=== PATIENT | male | born 1935 | race Caucasian/White ===

== ENCOUNTER 2021-10-16 16:53 | Emergency (ER) | payer OTHER, SELFPAY ==
--- NOTE | ~2021-10-16 | CT_ITS ---
EXAMINATION: CT HEAD WITHOUT CONTRAST CLINICAL INFORMATION: Dizziness. COMPARISON: None. TECHNIQUE: Contiguous axial imaging was performed from the skull base to vertex without intravenous administration of contrast. Coronal and sagittal reformatted images are performed at the CT scanner. [This CT examination was performed using dose optimization techniques as appropriate, variously including the following: *Automated exposure control *Adjustment of mA and/or kV according to patient size (this includes techniques or standardized protocols for targeted exams where dose is matched to indication/reason for exam; i.e. extremities or head) *Use of iterative reconstruction technique] DLP: 685 mGy-cm. FINDINGS: There is no evidence of acute intracranial hemorrhage or territorial infarction. No abnormal mass-effect or midline shift is seen. Zaidi to white matter differentiation is well preserved. No extra-axial fluid collections are identified. There is generalized global volume loss. There is mild prominence of the ventricles and the sulci . There is mild hypodensity of the periventricular white matter due to chronic small vessel ischemic disease. There are vascular calcifications of the internal carotid arteries bilaterally. There is no osseous abnormality. Mucosal thickening in the bilateral ethmoid sinuses, bilateral inferior maxillary and left sphenoid sinus. Mastoid air cells and middle ear cavities are normally aerated CT/CT head/brain wo con IMPRESSION: No acute intracranial pathology.
[2021-10-16 17:09] VITALS: BP 128/57; PULSE 60; O2SAT 98
[2021-10-16 17:18] VITALS: BP 135/71; PULSE 57; RESP 16; O2SAT 98
--- NOTE | 2021-10-16 17:18 | ED.DIZZY ---
HPI - Dizziness General Chief Complaint: Dizziness Stated Complaint: DIZZINESS Time Seen by Provider: 10/16/21 17:18 Source: patient Mode of arrival: ambulatory Limitations: no limitations History of Present Illness HPI Narrative: Patient 86 years old with history of hypertension otherwise very active played golf yesterday today was resting at home thought of doing pushups which he does all the time movement he started doing it he noticed everything spinning no headache no nausea no vomiting patient denies any chest pain or palpitation usually heart rate is around 55 when EMS reached patient heart rate was in 40s was given 0.5 mg of atropine x2 on arrival patient's heart rate is 60 feeling much better Related Data Home Medications Medication Instructions Recorded Confirmed atenolol 25 mg tablet 1 tab PO DAILY 10/16/21 10/16/21 atorvastatin 10 mg tablet 1 tab PO DAILY 10/16/21 10/16/21 losartan 50 mg tablet 1.5 tab PO DAILY 10/16/21 10/16/21 Previous Rx's Medication Instructions Recorded meclizine 25 mg tablet 25 mg PO TID PRN #20 tab 10/16/21 Allergies Allergy/AdvReac Type Severity Reaction Status Date / Time No Known Allergies Allergy Verified 10/16/21 17:19 Review of Systems Review of Systems: Yes all other systems are reviewed and are negative FORMERLY [facility], [facility] Past Medical History Medical History HLD (hyperlipidemia) HTN (hypertension) Social History Social History Advance Directives: Yes Advance Directives on File: Yes Advance Directives Date on File: 10/16/21 Physical Exam Vital Signs: Vital Signs: Last Vital Signs Temp 97.8 F 10/16/21 20:31 Pulse 51 10/16/21 20:31 Resp 16 10/16/21 20:31 BP 141/57 H 10/16/21 20:31 Pulse Ox 96 10/16/21 20:31 BMI result Body Mass Index 19.9 Appearance: Alert. Oriented X3. No acute distress. Eyes: PERRLA, No Nystagmus increased dizziness on turning of the head to the right side ENT: Pharynx normal. Oral Mucosa moist Neck: Normal inspection. Neck supple. CVS: Normal heart rate and rhythm. Pulses normal. Respiratory: No respiratory distress. Equal air entry bilateral, no wheezing/rales/rhonchi Abdomen: Soft and nontender. Bowel sounds are present, no mass palpable, no CVA tenderness Skin: Skin warm and dry. Normal skin color. Normal skin turgor. Extremities: No lower extremity edema. No calf tenderness Neuro: Oriented X 3. No motor deficit. No sensory deficit.No cerebellar signs , cranial nerves II-XII intact MDM - Dizziness MDM Narrative Medical decision making narrative: Patient with sudden onset of dizziness was displaying movement workup is benign except for chronic renal insufficiency patient feel better and able to ambulate will discharge patient home on meclizine no cerebellar signs of posterior circulation stroke Lab Data Attestation: I reviewed the patient's lab results. Result diagrams: 10/16/21 19:24 10/16/21 18:29 Labs: Lab Results 10/16/21 10/16/21 10/16/21 Range/Units 18:29 18:29 18:29 WBC Cancelled RBC Cancelled Hgb Cancelled Hct Cancelled MCV Cancelled MCH Cancelled MCHC Cancelled RDW Cancelled Plt Count Cancelled MPV Cancelled Immature Gran % (Auto) Cancelled Neut % (Auto) Cancelled Lymph % (Auto) Cancelled Greenlee % (Auto) Cancelled Eos % (Auto) Cancelled Baso % (Auto) Cancelled Lymph # (Auto) Cancelled Greenlee # (Auto) Cancelled Eos # (Auto) Cancelled Baso # (Auto) Cancelled Abs Immat Gran (auto) Cancelled Absolute Neuts (auto) Cancelled Absolute Nucleated RBC Cancelled Nucleated RBC % (auto) Cancelled Sodium 139 (135-145) mmol/L Potassium 4.9 (3.3-5.1) mmol/L Chloride 108 (96-108) mmol/L Carbon Dioxide 23 (22-29) mmol/L Anion Gap 13 (12-20) BUN 25 H (9-16) mg/dL Creatinine 1.50 H (0.5-1.4) mg/dL Estim Creat Clear Calc 38.5 Estimated GFR 45 Random Glucose 120 H (60-115) mg/dL Calcium 9.4 (8.4-10.2) mg/dL Magnesium 1.9 (1.6-2.6) mg/dL Total Bilirubin 0.8 (0.0-1.0) mg/dL AST 24 (5-37) U/L ALT 17 (0-40) U/L Alkaline Phosphatase 54 (39-117) U/L Troponin I High Sens 4.3 (<3.5-35.0) ng/L Total Protein 7.3 (6.5-8.0) g/dL Albumin 3.9 (3.5-5.0) g/dL 10/16/21 Range/Units 19:24 WBC 11.4 H RBC 3.84 L Hgb 12.4 L Hct 35.1 L MCV 91.4 MCH 32.3 MCHC 35.3 RDW 12.1 Plt Count 190 MPV 10.0 Immature Gran % (Auto) 0.4 Neut % (Auto) 74.4 H Lymph % (Auto) 14.5 L Greenlee % (Auto) 7.7 Eos % (Auto) 2.7 Baso % (Auto) 0.3 Lymph # (Auto) 1.7 Greenlee # (Auto) 0.9 Eos # (Auto) 0.3 Baso # (Auto) 0.0 Abs Immat Gran (auto) 0.05 H Absolute Neuts (auto) 8.5 H Absolute Nucleated RBC 0.000 Nucleated RBC % (auto) 0.0 Sodium (135-145) mmol/L Potassium (3.3-5.1) mmol/L Chloride (96-108) mmol/L Carbon Dioxide (22-29) mmol/L Anion Gap (12-20) BUN (9-16) mg/dL Creatinine (0.5-1.4) mg/dL Estim Creat Clear Calc Estimated GFR Random Glucose (60-115) mg/dL Calcium (8.4-10.2) mg/dL Magnesium (1.6-2.6) mg/dL Total Bilirubin (0.0-1.0) mg/dL AST (5-37) U/L ALT (0-40) U/L Alkaline Phosphatase (39-117) U/L Troponin I High Sens (<3.5-35.0) ng/L Total Protein (6.5-8.0) g/dL Albumin (3.5-5.0) g/dL Discharge Plan Discharge Clinical Impression: Benign paroxysmal positional vertigo Patient Disposition: Home, Self-Care Instructions: Benign Paroxysmal Positional Vertigo (ED) Additional Instructions: Cautions as advised Take meclizine 1 tablet 3 times a day as needed for dizziness Report to the ER/PCP if worsening of the symptoms Decrease the dose of atenolol to 25 mg daily and check HR if it is lower than 40 , call PCP or come to the ER Prescriptions: New meclizine 25 mg tablet 25 mg PO TID PRN (Reason: dizziness) Qty: 20 0RF No Action losartan 50 mg tablet 1.5 tab PO DAILY 0RF atorvastatin 10 mg tablet 1 tab PO DAILY 0RF atenolol 25 mg tablet 1 tab PO DAILY 0RF
--- NOTE | 2021-10-16 17:19 | ECG_ITS ---
Test Reason : DIZZINESS Blood Pressure : / mmHG Vent. Rate : 058 BPM Atrial Rate : 058 BPM P-R Int : 238 ms QRS Dur : 102 ms QT Int : 448 ms P-R-T Axes : 034 -43 060 degrees QTc Int : 439 ms Sinus bradycardia with 1st degree A-V block Left axis deviation Minimal voltage criteria for LVH, may be normal variant ( R in aVL ) Abnormal ECG No previous ECGs available Referred By: De Weinstein Electronically Signed By:MARY PRUETT MD
[2021-10-16 17:23] VITALS: BP 135/71; PULSE 57; O2SAT 96; BMI 19.9
[2021-10-16 17:35] VITALS: BP 140/67; O2SAT 98
[2021-10-16 18:51] LABS: Alanine Aminotransferase 17 U/L (0-40); Albumin Level 3.9 g/dL (3.5-5.0); Alkaline Phosphatase 54 U/L (39-117); Anion Gap 13 (12-20); Aspartate Amino Transferase 24 U/L (5-37); Bilirubin Total 0.8 mg/dL (0.0-1.0); Blood Urea Nitrogen 25 mg/dL (9-16); Calcium 9.4 mg/dL (8.4-10.2); Carbon Dioxide 23 mmol/L (22-29); Chloride 108 mmol/L (96-108); Creatinine Clr Calc Pharmacy 38.5; Estimated Glomerular Filt Rate 45; Glucose Random 120 mg/dL (60-115); Magnesium 1.9 mg/dL (1.6-2.6); Potassium 4.9 mmol/L (3.3-5.1); Sodium 139 mmol/L (135-145); Total Protein 7.3 g/dL (6.5-8.0)
[2021-10-16 18:56] LABS: Troponin-I High Sensitivity 4.3 ng/L (<3.5-35.0)
[2021-10-16] MEDS: 0.9 % Sodium Chloride 1,000 ML 999 ML IV (19:20)
[2021-10-16 19:30] LABS: MANUAL DIFF FLAG NO
[2021-10-16 19:31] LABS: Basophils Percent Auto 0.3 % (0-2); Eosinophils Absolute Auto 0.3 X10*3/uL (0.0-0.4); Eosinophils Percent Auto 2.7 % (0-4); Hematocrit 35.1 % (42.0-52.0); Hemoglobin 12.4 g/dl (14.0-18.0); Imm Gran Abs Auto 0.05 X10*3/uL (0.00-0.03); Imm Gran Pct Auto 0.4 % (0.0-0.4); Lymphocytes Absolute Auto 1.7 X10*3/uL (1.2-4.9); Lymphocytes Percent Auto 14.5 % (20-40); Mean Corpuscular HGB Conc 35.3 g/dl (31.0-36.0); Mean Corpuscular Hemoglobin 32.3 pg (27.0-33.0); Mean Corpuscular Volume 91.4 fL (80.0-98.0); Monocytes Absolute Auto 0.9 X10*3/uL (0.1-1.2); Monocytes Percent Auto 7.7 % (2-11); Neutrophils Absolute Auto 8.5 x10*3/uL (2.0-8.3); Neutrophils Percent Auto 74.4 % (45-73); Platelet Count 190 X10*3/uL (160-400); Red Blood Count 3.84 X10*6/uL (4.60-5.80); Red Cell Distribution Width 12.1 % (11.0-16.0); White Blood Count 11.4 X10*3/uL (4.8-10.8)
[2021-10-16] MEDS: Meclizine HCl 25 MG TABLET PO (20:27)
[2021-10-16 20:31] VITALS: BP 141/57; PULSE 51; RESP 16; TEMP 36.6; O2SAT 96
--- NOTE | 2021-10-16 21:04 | PC.NURSE ---
pt ambulated with assistance from ED tach. c/o mild dizziness with positional changes. no dizziness at rest. dtr at bedside
== END 2021-10-16 22:16 | disposition home or self-care (01) ==
PROVIDERS: Emergency Provider Internal Medicine; PCP Internal Medicine
DX: H81.13 Benign paroxysmal vertigo, bilateral (principal); I10 Essential (primary) hypertension; Z79.899 Other long term (current) drug therapy
CPT/HCPCS: 36415; 70450; 80053; 83735; 84484; 85025; 93005; 96360; 99284; 99285

== ENCOUNTER 2021-10-24 08:24 | Emergency (ER) | payer MEDICARE, OTHER, SELFPAY ==
[2021-10-24 08:40] VITALS: BP 159/84; PULSE 75; RESP 18; TEMP 36.8; O2SAT 97; BMI 25.7
--- NOTE | 2021-10-24 08:44 | ED_ITS ---
HPI - General Adult General Chief complaint: Extremity Injury, Upper <GERMAN Mancuso - Last Filed: 10/24/21 09:21> Stated complaint: r arm pain <GERMAN Mancuso Last Filed: 10/24/21 09:21> Time Seen by Provider: 10/24/21 08:44 <GERMAN Mancuso Last Filed: 10/24/21 09:21> Source: patient <GERMAN Mancuso Last Filed: 10/24/21 09:21> Mode of arrival: ambulatory <GERMAN Mancuso Last Filed: 10/24/21 09:21> Limitations: no limitations <GERMAN Mancuso Last Filed: 10/24/21 09:21> History of Present Illness HPI narrative: Patient is an 86 year old male presenting to the emergency department today with right elbow pain. Patient states that a week ago he was in the emergency department when he had his right IV line infiltrate. Patient states that a few days ago, his right elbow started to swell and hurt. Patient denies any dizziness, lightheadedness, abdominal pain, nausea, vomiting, fever, chills, blurry vision, double vision, loss of vision, chest pain, difficulty breathing, shortness of breath, back pain, night sweats, pain with urination, increased urinary frequency, increased urinary urgency, blood in his urine or stool, syncope or a near syncopal episode, recent trauma or falls, bowel incontinence, bladder incontinence, bowel retention, bladder retention, or any other complaints at this time. <GERMAN Mancuso Last Filed: 10/24/21 09:21> Onset (ago): day(s) <GERMAN Mancuso - Last Filed: 10/24/21 09:21> Location: right and upper extremity <GERMAN Mancuso Last Filed: 10/24/21 09:21> Radiation: non-radiation <GERMAN Mancuso Last Filed: 10/24/21 09:21> Severity: mild <GERMAN Mancuso Last Filed: 10/24/21 09:21> Severity scale (1-10): 4 <GERMAN Mancuso Last Filed: 10/24/21 09:21> Quality: dull <GERMAN Mancuso - Last Filed: 10/24/21 09:21> Pain Consistency: constant <GERMAN Mancuso - Last Filed: 10/24/21 09:21> Relieving factors: none <GERMAN Mancuso Last Filed: 10/24/21 09:21> Exacerbating factors: none <GERMAN Mancuso Last Filed: 10/24/21 09:21> Associated symptoms: denies other symptoms <GERMAN Mancuso - Last Filed: 10/24/21 09:21> Treatments prior to arrival: none <GERMAN Mancuso Last Filed: 10/24/21 09:21> Related Data Home medications: Home Medications Medication Instructions Recorded Confirmed atenolol 25 mg tablet 1 tab PO DAILY 10/16/21 10/16/21 atorvastatin 10 mg tablet 1 tab PO DAILY 10/16/21 10/16/21 losartan 50 mg tablet 1.5 tab PO DAILY 10/16/21 10/16/21 Previous Rx's Medication Instructions Recorded meclizine 25 mg tablet 25 mg PO TID PRN #20 tab 10/16/21 <GERMAN Mancuso - Last Filed: 10/24/21 09:21> Allergies/adverse reactions: Allergies Allergy/AdvReac Type Severity Reaction Status Date / Time No Known Allergies Allergy Verified 10/16/21 17:19 <GERMAN Mancuso - Last Filed: 10/24/21 09:21> Review of Systems Constitutional: Constitutional: Reports no additional constitutional complaints, Denies chills, Denies fever(s) and Denies night sweats <GERMAN Mancuso - Last Filed: 10/24/21 09:21> Eyes: Eyes: Reports no additional eye complaints, Denies blurry vision, Denies change in vision, Denies diplopia, Denies eye discharge, Denies loss of vision and Denies eye pain <GERMAN Mancuso - Last Filed: 10/24/21 09:21> ENT: Denies dizziness <GERMAN Mancuso Last Filed: 10/24/21 09:21> Cardiovascular: Cardiovascular: Reports no additional cardiovascular complaints, Denies chest pain, Denies lightheadedness, Denies Loss of Consciousness and Denies dyspnea <GERMAN Mancuso Last Filed: 10/24/21 09:21> Respiratory: Respiratory: Reports no additional respiratory complaints and Denies dyspnea <GERMAN Mancuso Last Filed: 10/24/21 09:21> Gastrointestinal: Gastrointestinal: Reports no additional gastrointestinal complaints, Denies abdominal pain, Denies melena, Denies hematochezia, Denies c hange in bowel habits and Denies change in stool character <GERMAN Mancuso Last Filed: 10/24/21 09:21> Genitourinary: Genitourinary: Reports no additional male genitourinary complaints, Denies hematuria, Denies oliguria, Denies difficulty urinating, Denies dysuria, Denies urinary frequency, Denies urinary hesitancy, Denies urinary incontinence and Denies urinary urgency <GERMAN Mancuso Last Filed: 10/24/21 09:21> Musculoskeletal: Musculoskeletal: Reports no additional musculoskeletal complaints, Denies numbness and Denies tingling <GERMAN Mancuso Last Filed: 10/24/21 09:21> Comments: right elbow pain and swelling <GERMAN Mancuso Last Filed: 10/24/21 09:21> Neurologic: Denies dizziness, Denies loss of vision, Denies numbness and Denies tingling <GERMAN Mancuso Last Filed: 10/24/21 09:21> Psychiatric: Psychiatric: Reports no additional psychiatric complaints <GERMAN Mancuso Last Filed: 10/24/21 09:21> Endocrine: Endocrine: Reports no additional endocrine complaints <GERMAN Mancuso Last Filed: 10/24/21 09:21> Hematologic/Lymphatic: Hematologic/Lymphatic: Reports no additional hematologic/lymphatic complaints <GERMAN Mancuso Last Filed: 10/24/21 09:21> Allergic/Immunologic: Allergic/Immunologic: Reports no additional allergic/immunologic complaints <GERMAN Mancuso Last Filed: 10/24/21 09:21> PMFSH Past Medical History Attestation statement: The following information was validated with the patient. <GERMAN Mancuso Last Filed: 10/24/21 09:21> Source: old records reviewed <GERMAN Mancuso Last Filed: 10/24/21 09:21> Medical History: Medical History HLD (hyperlipidemia) HTN (hypertension) <GERMAN Mancuso - Last Filed: 10/24/21 09:21> Social History Social History: Social History Advance Directives: Yes Advance Directives on File: Yes Advance Directives Date on File: 10/16/21 <GERMAN Mancuso - Last Filed: 10/24/21 09:21> Physical Exam ED Vital Signs: Vital Signs - 24 hr 10/24/21 08:40 Temperature 98.3 F Pulse Rate 75 Respiratory Rate 18 Blood Pressure 159/84 H Pulse Oximetry 97 BMI result Body Mass Index 25.7 <GERMAN Mancuso - Last Filed: 10/24/21 09:21> Const General: cooperative, no acute distress, alert and awake <GERMAN Mancuso - Last Filed: 10/24/21 09:21> Nutritional Appearance: well nourished <GERMAN Mancuso - Last Filed: 10/24/21 09:21> Orientation/consciousness: patient oriented x3 <GERMAN Mancuso - Last Filed: 10/24/21 09:21> Limitations: no limitations <GERMAN Mancuso - Last Filed: 10/24/21 09:21> HENMT Head: Yes normal to inspection and Yes atraumatic <GERMAN Mancuso - Last Filed: 10/24/21 09:21> Ears: hearing grossly normal bilaterally and external ears normal <GERMAN Mancuso - Last Filed: 10/24/21 09:21> General nose exam: Normal external nose present, no nasal discharge noted and no epistaxis <GERMAN Mancuso - Last Filed: 10/24/21 09:21> Face and sinus: Yes normal facial exam, No abrasion and No laceration <GERMAN Mancuso - Last Filed: 10/24/21 09:21> Mouth: Normal oral and palatal mucosa present, no drooling and no muffled voice <GERMAN Mancuso - Last Filed: 10/24/21 09:21> Eyes General: appearance normal, both eyes and all related structures <Arabella Zafar PA - Last Filed: 10/24/21 09:21> Periorbital: periorbital findings normal <Arabella Zafar PA - Last Filed: 10/24/21 09:21> Eyelids: Yes eyelids normal <Arabella Zafar PA - Last Filed: 10/24/21 09:21> Conjunctivae: conjunctivae normal <Arabella Zafar PA - Last Filed: 10/24/21 09:21> Pupils: Equal, round and reactive pupils present <Arabella Zafar PA - Last Filed: 10/24/21 09:21> EOM: EOMs intact bilaterally <Arabella Zafar PA - Last Filed: 10/24/21 09:21> Neck Neck: Yes normal visual inspection, Yes full ROM and Yes no lymphadenopathy <Arabella Zafar PA - Last Filed: 10/24/21 09:21> Chest Chest palpation & inspection: normal inspection of the chest <Arabella Zafar PA - Last Filed: 10/24/21 09:21> Resp Effort & Inspection: normal respiratory effort and able to speak in complete sentences <Arabella Zafar PA - Last Filed: 10/24/21 09:21> Auscultation: clear to auscultation bilaterally <Arabella Zafar PA - Last Filed: 10/24/21 09:21> Cardio Rate: regular rate <Arabella Zafar PA - Last Filed: 10/24/21 09:21> Rhythm: regular rhythm <Arabella Zafar PA - Last Filed: 10/24/21 09:21> GI Inspection: Yes normal to inspection <Arabella Zafar PA - Last Filed: 10/24/21 09:21> Neuro General: patient oriented x3 and moves all extremities <Arabella Rodartejoe PA - Last Filed: 10/24/21 09:21> Cranial nerves: Yes Equal, round and reactive pupils present <Arabella Zafar PA - Last Filed: 10/24/21 09:21> Cognition (Neuro): normal cognition <Arabella Zafar PA - Last Filed: 10/24/21 09:21> Motor exam (neuro): 5/5 motor strength present throughout <Arabella Zafar, PA - Last Filed: 10/24/21 09:21> Sensory Exam: Normal double simultaneous stimulation for sensation <Arabella ZafarGERMAN - Last Filed: 10/24/21 09:21> Coordination: [id number] test normal <Arabella ZafarGERMNA - Last Filed: 10/24/21 09:21> Extrem Other: patient's right elbow is minimally swollen with minimal redness, no warmth and no streaking. <Arabella ZafarGERMAN - Last Filed: 10/24/21 09:21> General: Yes full ROM and Yes capillary refill normal <Arabella ZafarGERMAN - Last Filed: 10/24/21 09:21> Psych Appearance: grossly normal <Arabella ZafarGERMAN - Last Filed: 10/24/21 09:21> Mental Status: mental status grossly normal <Arabella ZafarGERMAN - Last Filed: 10/24/21 09:21> Affect: normal affect <Arabellabebo RodarteGERMAN diaz - Last Filed: 10/24/21 09:21> Attitude: cooperative <Arabella ZafarGERMAN - Last Filed: 10/24/21 09:21> Thought process: Normal thought process present <Arabellabebo RodarteGERMAN diaz - Last Filed: 10/24/21 09:21> Thought content: Normal thought content present <Arabella RodarteGERMAN diaz - Last Filed: 10/24/21 09:21> Insight: Good insight present (Psych) <Arabella ZafarGERMAN - Last Filed: 10/24/21 09:21> Medical Decision Making MDM Narrative Medical decision making narrative: Patient is an 86 year old male presenting to the emergency department today with right elbow pain. Patient's physical exam showed minimal swelling and minimal redness to the right elbow. Patient's ROM, circulation, strength, and sensation were intact to the entire right upper extremity. Patient's physical exam is consistent with bursitis. I explained my physical exam findings to the patient. I answered all questions asked by the patient. I stressed the importance of the patient taking his medication as prescribed. I stressed the importance of the patient following up with his primary care provider and an orthopedist. I stressed the importance of the patient returning to the emergency department immediately if his symptoms were to worsen or if he were to develop any dizziness, shortness of breath, difficulty breathing, chest pain, blurry vision, loss of vision, nausea, vomiting, abdominal pain, fever, chills, back pain, or any other complaints. Patient verbalized agreement and understanding with this treatment plan and discharge. <GERMAN Mancuso - Last Filed: 10/24/21 09:21> Differential Diagnosis Differential Diagnosis: bursitis, elbow pain <GERMAN Mancuso - Last Filed: 10/24/21 09:21> Medical Records Medical records reviewed: Yes I reviewed the patient's medical records. <GERMAN Mancuso - Last Filed: 10/24/21 09:21> Discharge Plan Discharge Clinical Impression: Bursitis <GERMAN Mancuso Last Filed: 10/24/21 09:21> Patient Disposition: Home, Self-Care <GERMAN Mancuso - Last Filed: 10/24/21 09:21> Instructions: Elbow Bursitis (ED) <GERMAN Mancuso - Last Filed: 10/24/21 09:21> Additional Instructions: Follow up with your primary care provider. Return to the emergency department immediately if your symptoms worsen or if you develop any dizziness, shortness of breath, difficulty breathing, chest pain, blurry vision, loss of vision, nausea, vomiting, abdominal pain, fever, chills, back pain, or any other complaints. <GERMAN Mancuso - Last Filed: 10/24/21 09:21> Prescriptions: No Action losartan 50 mg tablet 1.5 tab PO DAILY 0RF atorvastatin 10 mg tablet 1 tab PO DAILY 0RF atenolol 25 mg tablet 1 tab PO DAILY 0RF meclizine 25 mg tablet 25 mg PO TID PRN (Reason: dizziness) Qty: 20 0RF <GERMAN Mancuso - Last Filed: 10/24/21 09:21> Referrals: [facility] [place] [facility] [Provider Group] Ventura Sheriff MD [Primary Care Provider] - (Follow up with your PCP. ) <GERMAN Mancuso Last Filed: 10/24/21 09:21> Interventions: ED Discharge Assessment Last Done: 10/24/21 09:12 <GERMAN Mancuso Last Filed: 10/24/21 09:21> Discharge Date/Time: 10/24/21 09:15 <GERMAN Mancuso - Last Filed: 10/24/21 09:21> Print Language: Hebrew <GERMAN Mancuso - Last Filed: 10/24/21 09:21>
== END 2021-10-24 09:15 | disposition home or self-care (01) ==
PROVIDERS: Emergency Provider Emergency Medicine; PCP Internal Medicine
DX: M71.521 Other bursitis, not elsewhere classified, right elbow (principal); Z79.899 Other long term (current) drug therapy
CPT/HCPCS: 99282; 99283

== ENCOUNTER 2025-04-30 13:29 | Outpatient (AMB) | payer MEDICARE, OTHER, SELFPAY ==
--- NOTE | 2025-04-30 13:33 | MHC.OFFVIS ---
Vital Signs 04/30/25 13:34 Height 5 ft 7 in Weight 170 lb 13.732 oz BMI 26.8 BP 130/60 Blood Pressure Location Lt brachial Position Sitting Pulse 67 Pulse Source Pulse Oximeter Pulse Oximetry (%) 99 Oxygen Delivery Method Room Air Intake Visit Reasons: Cough Intake Note: pt is here as a new patient for a cough that is dry for 7-8 months, mostly at night, not so much during the day Environmental Health Sanitarian Required: No Allergies No Known Allergies Allergy (Verified 04/30/25 14:06) Medication List - Last Reconciled 04/30/25 by Amna Galeana MD atenolol 1 tab PO DAILY atorvastatin 1 tab PO DAILY finasteride mg PO losartan 1.5 tabs PO DAILY omeprazole 20 mg PO DAILY Do you need a note to return to daycare/school/sports/work: No HPI HPI Cough: Details: THIS IS 89 YEARS OLD YOUNGER LOOKING GENTLEMAN. WHO COMES WITH CHIEF COMPLAINT OF COUGH FOR THE LAST 7 MONTHS. AT THE ONSET OF THE COUGH HE DOES NOT RECALL HAVING ANY ENT ARE CHEST INFECTION . HE IS ALSO NOT SURE IF HE HAD COVID INFECTION OR NOT. THERE HAS BEEN NO SIGNIFICANT CHANGE IN THE HOUSE ENVIRONMENT. HE LIVES ALONE IN THE HOUSE . . THE COUGH IS MOSTLY AT NIGHT OR IN THE MORNING HOURS. IT IS MOSTLY DRY . THERE IS NO ASSOCIATED WHEEZING. HE HAS NO SHORTNESS OF BREATH ON EXERTION. HE DENIES ANY GERD SYMPTOMS BUT HAS USED OMEPRAZOLE 20 MG DAILY HE DENIES ANY NASAL CONGESTION OR POSTNASAL DRIP. THERE WAS NO NEW MEDICINE. NO CHANGE IN HIS VOICE. DURING THE DAYTIME HE IS PHYSICALLY ACTIVE BEFORE. HE HAS REMOTE PAST HISTORY OF SMOKING BUT QUIT 45 YEARS AGO. [facility] Medical History Cough HLD (hyperlipidemia) HTN (hypertension) Social History Patient Tobacco Use Status: Former Tobacco user Advance Directives Date on File: 10/16/21 Review of Systems Const All systems reviewed & are unremarkable except as noted in HPI and below Eyes Reports no additional complaints ENT Denies nasal congestion and Denies nasal discharge Card Reports no additional complaints Resp Reports as per HPI GI Reports heartburn (CONTROLLED WITH OMEPRAZOLE 20 MG DAILY) Reports no additional complaints Musc Reports no additional complaints Skin/Breast Reports system reviewed and no additional complaints, except as documented Neuro Reports no additional complaints Psych Reports no additional complaints Endo Reports no additional complaints Benjamín/Lymph Reports no additional complaints Aller/Immun Reports no additional complaints Physical Exam Vital Signs: Last Vital Signs Pulse 67 04/30/25 13:34 BP 130/60 04/30/25 13:34 Pulse Ox 99 04/30/25 13:34 Oxygen Delivery Method Room Air 04/30/25 13:34 BMI result Body Mass Index 26.8 Const General: healthy appearing, comfortable, no acute distress, alert and awake Orientation/consciousness: patient oriented x3 HEENT Head: Yes normal to inspection General nose exam: No nasal polyps present and No nasal discharge present Face and sinus: Yes sinuses nontender Mouth: oropharynx normal Throat: Yes posterior oropharynx normal Eyes General: appearance normal, both eyes and all related structures Neck Neck: Yes normal visual inspection, Yes no lymphadenopathy, Yes trachea midline and Yes no JVD Thyroid: Thyroid normal Chest Chest palpation & inspection: normal inspection of the chest, normal palpation of entire chest wall and no tenderness Resp Effort & Inspection: normal respiratory effort Auscultation: clear to auscultation bilaterally, no crackles and no wheezes Cardio Palpation: normal PMI Rate: regular rate Rhythm: regular rhythm Heart sounds: no gallops and no murmurs Peripheral pulses: Peripheral pulses 2+ throughout GI Palpation (GI): Soft to palpation, nontender, No hepatosplenomegaly present and no masses Auscultation: normal bowel sounds Back/Spine/Pelvis Thoracic/Lumbar Spine: thoracic and lumbar spine normal to inspection Skin General skin exam: no rashes or lesions noted Neuro General: patient oriented x3 and no focal motor deficits Cranial nerves: Yes CN's II-XII intact bilaterally Extrem General: Yes normal to inspection, Yes no clubbing, cyanosis or edema and Yes no calf tenderness Psych Appearance: grossly normal and well kempt Speech and movement: Normal speech and movement present Assessment & Plan Assessment & Plan (1) Cough: Comment: NONSPECIFIC COUGH MOSTLY AT NIGHT, FOR THE LAST 6-7 MONTHS. NO SPECIFIC ETIOLOGY IS IDENTIFIED. IS POSSIBLE THAT HE DOES HAVE A LOW-GRADE GERD SYMPTOMS WHICH HE DOES NOT RECOGNIZE AND WHICH NOT FULLY CONTROLLED WITH OMEPRAZOLE. OTHER POSSIBILITY IS THAT HE DOES HAVE LOW-GRADE RHINITIS WITH POSTNASAL DISCHARGE . MOST LIKELY ETIOLOGY WOULD BE REACTIVE AIRWAYS. Code(s): R05.9 - Cough, unspecified Category: Medical Plan: CHEST X-RAY IS ORDERED. PULMONARY FUNCTION TEST ORDERED. FOR TREATMENT HE CAN USE ROBITUSSIN SYRUP 1 OR 2 TSP T.I.D. PRN. BUT MORE DEFINITIVE TREATMENT WOULD BE ADVISED AFTER THE INITIAL WORKUP. ADVISED TO USE A VAPORIZER OR HUMIDIFIER IN THE HOUSE DURING THE WINTER MONTHS Orders: Orders XR chest 2V Today R05.9 - Cough, unspecified Medications: Discontinued meclizine Discontinued Reason: Patient Completed Course 25 mg PO TID PRN 20 tabs 0RF dizziness Coding Level of Care Code New Pt Level 3 (71500) Diagnoses Cough R05.9
[2025-04-30 13:34] VITALS: BP 130/60; PULSE 67; O2SAT 99; BMI 26.8
== END 2025-04-30 14:04 | disposition home or self-care (01) ==
LOC: HO.HPS 13:30
PROVIDERS: PCP Internal Medicine; Referring Provider Internal Medicine; Visit Provider Internal Medicine
DX: R05.9 Cough, unspecified (principal)
CPT/HCPCS: 99203

== ENCOUNTER 2025-04-30 13:29 | Outpatient (REF) | payer MEDICARE, OTHER, SELFPAY ==
--- NOTE | ~2025-04-30 | XR_ITS ---
EXAMINATION: XR CHEST CLINICAL INFORMATION: R05.9 - Cough, unspecified COMPARISON: None available. TECHNIQUE: 2 views of the chest were obtained. FINDINGS: The cardiomediastinal silhouette is within normal limits. The lungs are well expanded. Mild bronchial wall thickening There is no focal consolidation, edema, or effusion. No pneumothorax. No acute osseous abnormality. XR/XR chest 2V IMPRESSION: Mild bronchial wall thickening can be seen with small airway disease. Electronically signed by: Paul Valencia MD 05/01/2025 08:01 AM VERÓNICA ALMAGUER
== END 2025-04-30 13:30 | disposition home or self-care (01) ==
LOC: HO.XRAY 13:29
PROVIDERS: PCP Internal Medicine; Referring Provider Internal Medicine; Visit Provider Internal Medicine
DX: R05.9 Cough, unspecified (principal)
CPT/HCPCS: 71046; 99202

== ENCOUNTER → 2025-04-30 14:10 | Outpatient (BNV) | payer MEDICARE, OTHER, SELFPAY | PROVIDERS: PCP Internal Medicine; Referring Provider Internal Medicine; Visit Provider Radiology Diagnostic Ultrasound | DX: R05.9 Cough, unspecified (principal) | CPT/HCPCS: 71046 ==